=== PATIENT | female | born 1975 | race Caucasian/White ===

== ENCOUNTER 2018-05-13 03:49 | Emergency (ER) | END 2018-05-13 06:43 | disposition home or self-care (01) ==

== ENCOUNTER 2018-06-28 12:03 | Emergency (ER) | END 2018-06-28 13:13 | disposition home or self-care (01) ==

== ENCOUNTER 2018-08-27 18:54 | Emergency (ER) | payer BC ==
[~2018-08-27] VITALS: Ht 162.6 cm; Wt 85.2 kg
[~2018-08-27 18:54] MED LIST: AZIT250T PO; HYDR25TA6 PO; IBUP-1542 PO
[2018-08-27 19:17] VITALS: BP 118/76; PULSE 83; RESP 18; Ht 162.6 cm; Wt 85.2 kg
[2018-08-27] MEDS ORDERED: IBUP-1542 PO (22:18)
--- NOTE | 2018-08-27 22:25 | ERD ---
ER Documentation Chief Complaint Chief Complaint ST since yesterday HPI 43-year-old female complaining of subjective fever and sore throat since yesterday. Patient states that it was severe, she has trouble swallowing. Patient states that she had strep throat 1 year ago, and this feels very similar. Denies cough. Denies shortness of breath. ROS All systems reviewed and are negative except as per history of present illness. Medications Home Meds Active Scripts Ibuprofen* (Motrin*) 600 Mg Tab, 600 MG PO Q6H PRN for PAIN AND OR ELEVATED TEMP, #30 TAB Prov:LIZETT STRONG NP 08/27/18 Hydrochlorothiazide* (Hydrochlorothiazide*) 25 Mg Tab, 25 MG PO DAILY, #30 TAB Prov:IAN BENTON MD 06/28/18 Ibuprofen* (Motrin*) 600 Mg Tab, 600 MG PO Q6H PRN for PAIN AND OR ELEVATED TEMP, #30 TAB Prov:IAN BENTON MD 06/28/18 Ibuprofen* (Motrin*) 600 Mg Tab, 600 MG PO Q6, #30 TAB Prov:EDIN,ROB 05/13/18 Azithromycin* (Zithromax*) 250 Mg Tablet, 250 MG PO .ZPACK DIRECTED, #6 TAB TAKE 500 MG (2 TABS) THE FIRST DAY THEN 250 MG (1 TAB) DAYS 2-5 Prov:EDIN,ROB 05/13/18 Allergies Allergies: Uncoded Allergies: NEOSPORIN (Allergy, Unknown, 05/13/18) PMhx/Soc History of Surgery: Yes (C SECTION) Anesthesia Reaction: No Hx Neurological Disorder: No Hx Respiratory Disorders: No Hx Cardiac Disorders: Yes (HTN) Hx Psychiatric Problems: No Hx Miscellaneous Medical Probl: Yes (GESTATIONAL DM) Hx Alcohol Use: No Hx Substance Use: No Hx Tobacco Use: No Smoking Status: Never smoker Physical Exam Vitals Vital Signs Date Temp Pulse Resp B/P (MAP) Pulse Ox O2 O2 Flow FiO2 Time Delivery Rate 08/27/18 97.0 83 18 118/76 99 19:17 (90) Physical Exam General: Well-developed, well-nourished, conscious and coherent, in no dis tress Skin: Warm and dry without rash, good texture and turgor Head: Normocephalic without evidence of trauma Ears: Canals are patent. Tympanic membranes are clear Nose/Face: Without rhinorrhea Mouth/throat: Mucous membranes are moist. Posterior pharynx erythematous, tonsils 3+ bilaterally with white exudate Neck: Supple without meningismus. Carotids are equal. Trachea midline. No bruits or JVD Chest: Normal AP diameter. Good expansion without retractions. Nontender. Lungs are clear to auscultate bilaterally with good tidal volume Heart: Regular rate and rhythm. No murmur, rub, or gallops heard Extremities: Full range of motion. Good strength bilaterally. No erythema, ecchymosis, or edema. Peripheral pulses are intact. Sensation intact Neuro: Alert and oriented 4, GCS 15. Results 24 hrs Current Medications Medications Dose Sig/Valerie Start Time Status Last (Trade) Ordered Route PRN Stop Time Admin Dose Reason Admin Penicillin 1,200,000 ONCE ONCE 08/27/18 G units IM 22:30 Benzathine 08/27/18 22:31 (Bicillin La) Procedures/MDM Well-appearing 43-year-old female present ED with subjective fever and sore throat. History and exam findings are consistent with presumed strep pharyngitis. I opted not to testing her for expediency. Penicillin G be 1,200,000 units IM given to the patient in the ED. Patient appears well, stable for discharge and outpatient management. Medical decision making shared with patient and family. Education provided to patient and family. Patient and family expressed understanding of the plan. Medications on discharge: Ibuprofen. Follow-up: Primary care provider in 2-3 days or return to ED if worse. Disclaimer: Inadvertent spelling and grammatical errors are likely due to EHR/dictation software use and do not reflect on the overall quality of patient care. Also, please note that the electronic time recorded on this note does not necessarily reflect the actual time of the patient encounter. Departure Diagnosis: Primary Impression: Strep pharyngitis Condition: Stable Patient Instructions: Pharyngitis, Strep (Presumed) Referrals: COMM[facility] CLIN[facility] YOU HAVE RECEIVED A MEDICAL SCREENING EXAM AND THE RESULTS INDICATE THAT YOU DO NOT HAVE A CONDITION THAT REQUIRES URGENT TREATMENT IN THE EMERGENCY DEPARTMENT. FURTHER EVALUATION AND TREATMENT OF YOUR CONDITION CAN WAIT UNTIL YOU ARE SEEN IN YOUR DOCTORS OFFICE WITHIN THE NEXT 1-2 DAYS. IT IS YOUR RESPONSIBILITY TO MAKE AN APPOINTMENT FOR FOLOW-UP CARE. IF YOU HAVE A PRIMARY DOCTOR --you should call your primary doctor and schedule an appointment IF YOU DO NOT HAVE A PRIMARY DOCTOR YOU CAN CALL OUR PHYSICIAN REFERRAL HOTLINE AT IF YOU CAN NOT AFFORD TO SEE A PHYSICIAN YOU CAN CHOSE FROM THE FOLLOWING [facility] [place] [address] [facility] [address] [facility] [address] [facility] [address] [facility]. [facility] [address] [facility] [facility]. [address] Additional Instructions: Call your primary care doctor TOMORROW for an appointment during the next 2-3 days.See the doctor sooner or return here if your condition worsens before your appointment time. LIZETT STRONG NP Aug 27, 2018 22:25
[2018-08-27] MEDS ORDERED: PENICILLIN G BENZ 1.2 MIL UNIT SYG IM ONE (22:30)
[2018-09-04] MEDS ORDERED: PROM6.2515 PO (12:46)
[2018-09-04] MEDS ORDERED: ACET500C5 PO (12:46)
[2018-09-04] MEDS ORDERED: IBUP-1542 PO (12:46)
== END 2018-08-27 23:31 | disposition home or self-care (01) ==
LOC: FTE 18:54
DX: J02.0 Streptococcal pharyngitis (principal); I10 Essential (primary) hypertension; R40.2412 Glasgow coma scale score 13-15, at arrival to emergency department
CPT/HCPCS: 96372; 99284; J0561

== ENCOUNTER 2018-09-11 18:32 | Emergency (ER) | payer BC ==
[~2018-09-11] VITALS: Ht 154.9 cm; Wt 84.5 kg
[~2018-09-11 18:32] MED LIST changes: +ACET500C5 PO; +PROM6.2515 PO
[2018-09-11 18:39] VITALS: Ht 154.9 cm; Wt 84.5 kg
[2018-09-11] MEDS ORDERED: PRED50TA PO (20:31)
[2018-09-11] MEDS ORDERED: PROM5SYR2 PO (20:31)
[2018-09-11] MEDS ORDERED: AZIT250T PO (20:31)
--- NOTE | 2018-09-11 20:40 | ERD ---
ER Documentation Chief Complaint Chief Complaint C/O COUGH X2 WEEKS, SOB X2 DAYS, CHEST WALL PAIN W/ COUGH HPI This is a 43-year-old female who presents with 2 weeks of cough and shortness of breath and chest wall pain when she coughs. No fever. Symptoms are worse at night. Been taking [id number] medication without relief. ROS All systems reviewed and are negative except as per history of present illness. Medications Home Meds Active Scripts Prednisone* (Prednisone*) 50 Mg Tablet, 50 MG PO DAILY, #5 TAB Prov:SHERLY MADSEN PA-C 09/11/18 Azithromycin* (Zithromax*) 250 Mg Tablet, 250 MG PO .ZPACK DIRECTED, #6 TAB TAKE 500 MG (2 TABS) THE FIRST DAY THEN 250 MG (1 TAB) DAYS 2-5 Prov:SHERLY MADSEN PA-C 09/11/18 Promethazine HCl/Codeine (Prometh-Codein 6.25-10 mg/5 ml) 5 Ml Syrup, 5 ML PO Q6, #120 ML Prov:SHERLY MADSEN PA-C 09/11/18 Promethazine Hcl* (Promethazine Hcl* Syrup) 6.25 Mg/5 Ml Syrup, 6.25 MG PO Q6H PRN for COUGH, #100 ML Prov:SOFIYA GARCIA PA-C 09/04/18 Acetaminophen* (Tylophen*) 500 Mg Capsule, 2 CAP PO Q8H PRN for PAIN AND OR ELEVATED TEMP, #20 CAP Prov:SOFIYA GARCIA PA-C 09/04/18 Ibuprofen* (Motrin*) 600 Mg Tab, 600 MG PO Q6, #30 TAB Prov:SOFIYA GARCIA PA-C 09/04/18 Ibuprofen* (Motrin*) 600 Mg Tab, 600 MG PO Q6H PRN for PAIN AND OR ELEVATED TEMP, #30 TAB Prov:LIZETT STRONG NP 08/27/18 Hydrochlorothiazide* (Hydrochlorothiazide*) 25 Mg Tab, 25 MG PO DAILY, #30 TAB Prov:IAN BENTON MD 06/28/18 Ibuprofen* (Motrin*) 600 Mg Tab, 600 MG PO Q6H PRN for PAIN AND OR ELEVATED TEMP, #30 TAB Prov:IAN BENTON MD 06/28/18 Ibuprofen* (Motrin*) 600 Mg Tab, 600 MG PO Q6, #30 TAB Prov:EDIN,ROB 05/13/18 Azithromycin* (Zithromax*) 250 Mg Tablet, 250 MG PO .ValentinPACK DIRECTED, #6 TAB TAKE 500 MG (2 TABS) THE FIRST DAY THEN 250 MG (1 TAB) DAYS 2-5 Prov:EDIN,ROB 05/13/18 Allergies Allergies: Uncoded Allergies: NEOSPORIN (Allergy, Unknown, 05/13/18) PMhx/Soc History of Surgery: Yes (C SECTION) Anesthesia Reaction: No Hx Neurological Disorder: No Hx Respiratory Disorders: No Hx Cardiac Disorders: Yes (HTN) Hx Psychiatric Problems: No Hx Miscellaneous Medical Probl: Yes (GESTATIONAL DM) Hx Alcohol Use: No Hx Substance Use: No Hx Tobacco Use: No Smoking Status: Never smoker FmHx Family History: No diabetes Physical Exam Vitals Vital Signs Date Temp Pulse Resp B/P (MAP) Pulse Ox O2 O2 Flow FiO2 Time Delivery Rate 09/11/18 97.2 76 19 107/67 98 18:39 (80) Physical Exam INITIAL VITAL SIGNS: Reviewed by me GENERAL: Awake, alert and oriented x 4, well appearing, nontoxic, speaking in full sentences. No acute distress HEAD: Atraumatic NECK: Supple. No masses. Full range of motion. No meningismus. No midline tenderness. EYES: EOMI. PERRL. EAR: No tenderness over the mastoids bilaterally. No exudates in the canals. TMs nonerythematous. NOSE: Normal nose. THROAT: No tonilar erythema or edema. No exudates. Uvula midline. No kissing tonsils. RESPIRATORY: Clear to auscultation bilaterally. Symmetric chest wall rise. No wheezing or rales. No accessory muscle use. CV: Regular rate and rhythm. No murmurs, rubs, or gallops. Procedures/MDM This 43-year-old has cough for 2 weeks. She is afebrile. Lungs are clear. Likely bronchitis. Patient given prescription for azithromycin, cough syrup, and prednisone. Patient counseled regarding my diagnostic impression and care plan. Prior to discharge all questions answered. Pt agrees with treatment plan and understands strict return precautions. Pt is instructed to follow up with primary care provider within 24-48 hours. Precautionary instructions provided including instructions to return to the ER if not improving or for any worsening or changing symptoms or concerns. Departure Diagnosis: Primary Impression: Bronchitis Condition: Stable Patient Instructions: Bronchitis, Antiobiotic Treatment (Adult) Additional Instructions: Call your primary care doctor TOMORROW for an appointment during the next 1-2 days.See the doctor sooner or return here if your condition worsens before your appointment time. SHERLY MADSEN PA-C Sep 11, 2018 20:40
[2018-09-11 20:46] VITALS: BP 116/86; PULSE 67; RESP 19
== END 2018-09-11 20:47 | disposition home or self-care (01) ==
LOC: FTE 18:32
DX: J40 Bronchitis, not specified as acute or chronic (principal); I10 Essential (primary) hypertension
CPT/HCPCS: 99283